=== PATIENT | female | born 1965 | race Caucasian/White ===

== ENCOUNTER 2016-09-04 10:02 | Emergency (ER) | payer OTHER ==
[~2016-09-04] VITALS: Ht 152.4 cm; Wt 90.7 kg
--- NOTE | ~2016-09-04 | EKG ---
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 09/04/16 125[address] [facility] Dustin Quick MD, FACC /EPI
[~2016-09-04 10:02] MED LIST: ASPIR 8181 MG PO; ASPIRIN325 PO; ATORVASTATIN CA40 MG PO; CARDIZEM CD180 MG PO; CARDIZEM CD240 MG PO; CELEXA10 MG PO; CELEXA20 MG PO; COUMADIN 5 MG TA5 M1 PO; DOXYCYCLINE 10100 MG PO; EFFIENT10 MG PO; ENOXAPARIN120 MG/0.1 SUBQ; FISH OIL 1,001000 M2 PO; FLEXERIL PO; HYCET 7.5 MG-3473 ML PO; HYDROCHLOROTH12.5 MG PO; HYDROCHLOROTHIA25 M2 PO; IMDUR 30 MG TAB30 M1 PO; KEFLEX500 MG PO; LEVAQUIN 500 M500 M1 PO; NAPROSYN500 MG PO; NITROGLYCERIN0.4 MG SUBLING; NOHOMEMEDICATIONS; NORCO 5-325 TA1 EACH PO; PHENERGAN 25 MG25 M1 PO; PLAVIX 75 MG TA75 M1 PO; PROBIOTIC1 EAC1 PO; RANITIDINE 150150 MG PO; TOPROL XL50 MG PO; ZANTAC 150MG T150 M1 PO; ZOFRAN ODT4 MG PO
[2016-09-04] MEDS ORDERED: PRADAXA150 MG PO (10:07)
[2016-09-04 11:00] LABS: ABSOLUTE NEUTROPHILS 3.4 thou/uL (1.4-8.2); BASOPHILS 1.1 % (0.0-2.0); EOSINOPHILS 3.2 % (0.0-3.0); HEMATOCRIT 41.8 % (37.0-47.0); LYMPHOCYTES 28.5 % (24.0-44.0); MCH 29.3 pg (26.0-34.0); MCHC 33.5 % (28.0-37.0); MCV 87.5 fL (80.0-100.0); MONOCYTES 6.3 % (1.0-8.0); PLATELET COUNT 285 thou/uL (150-400); POLYS 60.9 % (36.0-66.0); RBC 4.78 mil/uL (4.20-5.00); RDW 13.9 % (10.5-14.5); WBC 5.7 thou/uL (4.0-11.0)
[2016-09-04 11:08] LABS: MANUAL DIFF NO
[2016-09-04 11:12] LABS: ANION GAP 7 mmol/L (7-16); BUN 11 mg/dL (7-18); CALCIUM 9.2 mg/dL (8.5-10.1); CHLORIDE 101 mmol/L (98-107); CO2 31 mmol/L (21-32); CREATININE 0.8 mg/dL (0.6-1.3); GLUCOSE 95 mg/dL (70-99); POTASSIUM 3.6 mmol/L (3.5-5.1); SODIUM 139 mmol/L (136-145)
[2016-09-04 11:24] LABS: ALKALINE PHOSPHATASE 105 U/L (46-116); SGOT 22 U/L (15-37); SGPT 42 U/L (30-65); TOTAL BILIRUBIN 0.6 mg/dL (<0.1-1.0); TOTAL PROTEIN 7.5 g/dL (6.4-8.2)
[2016-09-04] MEDS ORDERED: CARAFATE 1 GM TA1 G1 PO (12:40)
[2016-09-04 13:07] LABS: TROPONIN-I < 0.04 ng/mL (<0.04-0.07)
[2016-09-04 13:11] VITALS: BP 129/86
[2016-11-07] MEDS ORDERED: PREVACID30 MG PO (10:21)
== END 2016-09-04 13:11 | disposition home or self-care (01) ==
LOC: ER 10:02
PROVIDERS: Nurse Practitioner Family
DX: K22.4 Dyskinesia of esophagus (principal); I10 Essential (primary) hypertension; E78.5 Hyperlipidemia, unspecified; I25.10 Atherosclerotic heart disease of native coronary artery without angina pectoris; F32.9 Major depressive disorder, single episode, unspecified; K21.9 Gastro-esophageal reflux disease without esophagitis; Z95.5 Presence of coronary angioplasty implant and graft; Z98.890 Other specified postprocedural states; Z87.891 Personal history of nicotine dependence

== ENCOUNTER 2016-09-14 20:46 | Emergency (ER) | payer OTHER ==
[~2016-09-14] VITALS: Ht 152.4 cm; Wt 90.7 kg
--- NOTE | ~2016-09-14 | EKG ---
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
[~2016-09-14 20:46] MED LIST changes: +CARAFATE 1 GM TA1 G1 PO; +PRADAXA150 MG PO
[2016-09-14 21:16] LABS: ABSOLUTE NEUTROPHILS 3.3 thou/uL (1.4-8.2); EOSINOPHILS 4.8 % (0.0-3.0); HEMATOCRIT 43.6 % (37.0-47.0); HEMOGLOBIN 14.8 gm/dL (12.0-15.0); MCH 29.7 pg (26.0-34.0); MCHC 33.9 % (28.0-37.0); MCV 87.5 fL (80.0-100.0); MONOCYTES 7.1 % (1.0-8.0); PLATELET COUNT 335 thou/uL (150-400); POLYS 47.1 % (36.0-66.0); RBC 4.98 mil/uL (4.20-5.00); RDW 14.1 % (10.5-14.5); WBC 7.1 thou/uL (4.0-11.0)
[2016-09-14 21:22] LABS: MANUAL DIFF NO
[2016-09-14 22:13] LABS: ANION GAP 6 mmol/L (7-16); BUN 19 mg/dL (7-18); CALCIUM 8.9 mg/dL (8.5-10.1); CHLORIDE 104 mmol/L (98-107); CO2 30 mmol/L (21-32); CREATININE 0.9 mg/dL (0.6-1.3); GLUCOSE 94 mg/dL (70-99); POTASSIUM 3.6 mmol/L (3.5-5.1); SODIUM 140 mmol/L (136-145)
[2016-09-14 22:14] LABS: ALBUMIN 3.7 g/dL (3.4-5.0); ALKALINE PHOSPHATASE 106 U/L (46-116); MAGNESIUM 2.3 mg/dL (1.8-2.4); SGOT 11 U/L (15-37); SGPT 27 U/L (30-65); TOTAL BILIRUBIN 0.3 mg/dL (<0.1-1.0); TOTAL PROTEIN 7.1 g/dL (6.4-8.2); TROPONIN-I < 0.04 ng/mL (<0.04-0.07)
[2016-09-14] MEDS ORDERED: PHENERGAN 25 MG25 M1 PO (22:28)
[2016-09-14] MEDS ORDERED: PROTONIX40 M1 PO (22:28)
[2016-09-14 22:58] VITALS: BP 147/67
[2016-11-07] MEDS ORDERED: PREVACID30 MG PO (10:21)
== END 2016-09-14 22:59 | disposition home or self-care (01) ==
LOC: ER 20:46
PROVIDERS: Emergency Medicine; Physician Assistant
DX: K21.9 Gastro-esophageal reflux disease without esophagitis (principal); R07.89 Other chest pain; F32.9 Major depressive disorder, single episode, unspecified; I10 Essential (primary) hypertension; I25.10 Atherosclerotic heart disease of native coronary artery without angina pectoris; E78.5 Hyperlipidemia, unspecified; Z87.891 Personal history of nicotine dependence; Z95.5 Presence of coronary angioplasty implant and graft

== ENCOUNTER 2016-09-23 16:33 | Emergency (ER) | payer OTHER ==
[~2016-09-23] VITALS: Ht 152.4 cm; Wt 86.2 kg
[~2016-09-23 16:33] MED LIST changes: +PROTONIX40 M1 PO
[2016-09-23 17:23] LABS: BASOPHILS 0.7 % (0.0-2.0); EOSINOPHILS 2.2 % (0.0-3.0); HEMATOCRIT 44.6 % (37.0-47.0); HEMOGLOBIN 15.2 gm/dL (12.0-15.0); LYMPHOCYTES 28.8 % (24.0-44.0); MCH 29.4 pg (26.0-34.0); MCV 86.6 fL (80.0-100.0); MONOCYTES 4.8 % (1.0-8.0); PLATELET COUNT 319 thou/uL (150-400); POLYS 63.5 % (36.0-66.0); RBC 5.15 mil/uL (4.20-5.00); RDW 13.8 % (10.5-14.5); WBC 9.5 thou/uL (4.0-11.0)
[2016-09-23 17:30] LABS: CALCIUM 9.4 mg/dL (8.5-10.1); POTASSIUM 3.2 mmol/L (3.5-5.1)
[2016-09-23 17:38] LABS: ALBUMIN 4.2 g/dL (3.4-5.0); DIRECT BILIRUBIN 0.1 mg/dL (<0.1-0.3); TOTAL BILIRUBIN 0.4 mg/dL (<0.1-1.0); TOTAL PROTEIN 7.8 g/dL (6.4-8.2)
[2016-09-23 17:39] LABS: MANUAL DIFF NO
[2016-09-23] MEDS ORDERED: PHENERGAN 25 MG25 M1 PO (18:53)
[2016-09-23 19:05] VITALS: BP 125/75
[2016-11-07] MEDS ORDERED: PREVACID30 MG PO (10:21)
== END 2016-09-23 19:05 | disposition home or self-care (01) ==
LOC: ER 16:33
PROVIDERS: Physician Assistant
DX: K42.0 Umbilical hernia with obstruction, without gangrene (principal); E87.6 Hypokalemia; K91.89 Other postprocedural complications and disorders of digestive system; I25.10 Atherosclerotic heart disease of native coronary artery without angina pectoris; I10 Essential (primary) hypertension; F32.9 Major depressive disorder, single episode, unspecified; L40.9 Psoriasis, unspecified; K21.9 Gastro-esophageal reflux disease without esophagitis; Z87.891 Personal history of nicotine dependence

== ENCOUNTER 2018-05-31 06:20 | Emergency (ER) | payer OTHER ==
[~2018-05-31] VITALS: Ht 157.5 cm; Wt 72.6 kg
--- NOTE | ~2018-05-31 | EKG ---
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: [facility] : 1965 Requested By: Nalini Dunn Order Number: [id number] MD: Remi Riggs Measurements Intervals [place] Rate: 84 P: 87 NC: 154 QRS: 89 QRSD: 82 T: 79 QT: 343 QTc: 406 Interpretive Statements Sinus rhythm Anterior infarct, old Nonspecific T abnormalities, lateral leads Compared to ECG 06/20/2017 04:10:27 Myocardial infarct finding now present T-wave abnormality still present Electronically Signed On 05-31-2018 13:31:24 CDT by Remi Riggs [email or web address] <ELECTRONICALLY SIGNED> By: Remi Riggs MD 05/31/18 1331 0705 0705 Remi Riggs MD /MARGARET
[~2018-05-31 06:20] MED LIST changes: +PREVACID30 MG PO
[2018-05-31 07:15] LABS: HEMOGLOBIN 12.5 gm/dL (12.0-15.0); MCH 26.3 pg (26.0-34.0); MCV 79.7 fL (80.0-100.0); RBC 4.77 mil/uL (4.20-5.00); RDW 15.6 % (10.5-14.5); WBC 7.6 thou/uL (4.0-11.0)
[2018-05-31 07:19] LABS: ANION GAP 9 mmol/L (7-16); BUN 11 mg/dL (7-18); CALCIUM 9.1 mg/dL (8.5-10.1); CHLORIDE 104 mmol/L (98-107); CO2 24 mmol/L (21-32); CREATININE 0.8 mg/dL (0.6-1.0); GLUCOSE 100 mg/dL (74-106); POTASSIUM 3.8 mmol/L (3.5-5.1); SODIUM 137 mmol/L (136-145)
[2018-05-31 07:28] LABS: ALBUMIN 3.7 g/dL (3.4-5.0); LIPASE 285 U/L (73-393); SGOT 18 U/L (15-37); SGPT 18 U/L (30-65); TOTAL BILIRUBIN 0.2 mg/dL (<0.1-1.0); TOTAL PROTEIN 7.5 g/dL (6.4-8.2); TROPONIN-I <0.06 ng/mL (<0.06)
[2018-05-31] MEDS ORDERED: ATORVASTATIN CA40 MG PO (07:45)
[2018-05-31] MEDS ORDERED: ASPIR 8181 MG PO (07:45)
[2018-05-31] MEDS ORDERED: IMDUR 30 MG TAB30 M1 PO (07:47)
[2018-05-31 08:25] LABS: URINE BILIRUBIN NEGATIVE (Negative); URINE BLOOD NEGATIVE (Negative); URINE CLARITY CLEAR; URINE COLOR YELLOW; URINE GLUCOSE-RANDOM* NEGATIVE (Negative); URINE KETONES NEGATIVE (Negative); URINE LEUKOCYTES-REFLEX NEGATIVE (Negative); URINE NITRITE-REFLEX NEGATIVE (Negative); URINE PROTEIN (DIPSTICK) NEGATIVE (Negative); URINE UROBILINOGEN 0.2 E.U./dl (0.2-1.0)
[2018-05-31 10:15] VITALS: BP 161/85
== END 2018-05-31 10:16 | disposition home or self-care (01) ==
LOC: ER 06:20
PROVIDERS: Student in an Organized Health Care Education/Training Program
DX: K43.9 Ventral hernia without obstruction or gangrene (principal); R11.2 Nausea with vomiting, unspecified; I25.10 Atherosclerotic heart disease of native coronary artery without angina pectoris; I10 Essential (primary) hypertension; E78.5 Hyperlipidemia, unspecified; F32.9 Major depressive disorder, single episode, unspecified; K21.9 Gastro-esophageal reflux disease without esophagitis; L40.9 Psoriasis, unspecified; Z87.891 Personal history of nicotine dependence; Z98.890 Other specified postprocedural states; Z95.5 Presence of coronary angioplasty implant and graft